=== PATIENT | female | born 1940 | race Caucasian/White ===

== ENCOUNTER → 2016-11-23 | Outpatient (CLI) | payer OTHER ==
[~2016-11-23] MED LIST: ACETAMINOPHEN325 M1 PO; ADULT LOW DOSE81 MG PO; ALENDRONATE SOD10 MG PO; ASPIRIN81 M2 PO; BACTRIM DS TAB1 EACH PO; CALCIUM 500 +1 EAC6 PO; COLACE100 MG PO; FLECAINIDE ACE100 MG PO; FLECAINIDE ACET50 M1 PO; FLORANEX PACKET1 GM PO; GABAPENTIN 100100 MG; GLUCOSAMINE &1 EAC1 PO; KLOR-CON 10 ER10 MEQ PO; KLOR-CON 1010 MEQ PO; METOPROLOL SUCC50 MG PO; MULTI-DAY VITA1 EACH PO; MULTIVITAMINS PO; MULTIVITAMINS1 EAC7 PO; NORVASC 5 MG TAB5 MG PO; OMEGA-31000 M1; OMEGA-31000 M1 PO; POTASSIUM20; PRAVASTATIN SOD20 MG PO; PREDNISONE 1 MG1 M1 PO; PREDNISONE 20 M20 M1; PREDNISONE 20 M20 MG PO; PREDNISONE 5 MG5 M1 PO; SENNA S TABLET1 EACH PO; VITAMIN D3400 UNIT
== END ==
LOC: MRI 02:23
DX: M65.871 Other synovitis and tenosynovitis, right ankle and foot (principal); M72.2 Plantar fascial fibromatosis

== ENCOUNTER 2016-12-04 15:34 | Emergency (ER) | payer OTHER ==
[~2016-12-04] VITALS: Ht 162.6 cm; Wt 55.3 kg
[2016-12-04] MEDS ORDERED: ARICEPT 5 MG TAB5 MG PO (15:42)
[2016-12-04 17:31] VITALS: BP 116/59
== END 2016-12-04 17:32 | disposition home or self-care (01) ==
LOC: ER 15:34
DX: S61.511A Laceration without foreign body of right wrist, initial encounter (principal); S81.811A Laceration without foreign body, right lower leg, initial encounter; I10 Essential (primary) hypertension; E78.00 Pure hypercholesterolemia, unspecified; Z88.6 Allergy status to analgesic agent; Z88.5 Allergy status to narcotic agent; W18.30XA Fall on same level, unspecified, initial encounter; Y93.89 Activity, other specified; Y92.239 Unspecified place in hospital as the place of occurrence of the external cause; Y99.9 Unspecified external cause status

== ENCOUNTER → 2017-01-19 | Outpatient (CLI) | payer OTHER ==
[~2017-01-19] MED LIST changes: +ARICEPT 5 MG TAB5 MG PO
== END ==
LOC: ULTRA 09:03
DX: R31.9 Hematuria, unspecified (principal)

== ENCOUNTER 2017-10-04 14:18 | Emergency (ER) | payer OTHER ==
[~2017-10-04] VITALS: Ht 170.2 cm; Wt 54.4 kg
[2017-10-04 16:52] VITALS: BP 125/55
== END 2017-10-04 15:30 | disposition home or self-care (01) ==
LOC: ER 14:18
DX: S39.012A Strain of muscle, fascia and tendon of lower back, initial encounter (principal); I10 Essential (primary) hypertension; E78.00 Pure hypercholesterolemia, unspecified; Z88.5 Allergy status to narcotic agent; Z88.6 Allergy status to analgesic agent; Z88.8 Allergy status to other drugs, medicaments and biological substances; X58.XXXA Exposure to other specified factors, initial encounter; Y93.89 Activity, other specified; Y92.89 Other specified places as the place of occurrence of the external cause; Y99.8 Other external cause status

== ENCOUNTER → 2017-10-12 | Outpatient (CLI) | payer OTHER | LOC: MRI 15:08 | DX: M84.454A Pathological fracture, pelvis, initial encounter for fracture (principal); I10 Essential (primary) hypertension; E78.5 Hyperlipidemia, unspecified; E87.6 Hypokalemia ==